=== PATIENT | male | born 1975 | race Hispanic/Latino ===

== ENCOUNTER 2018-07-30 00:42 | Observation (INO) | payer OTHER ==
[~2018-07-30] VITALS: Ht 185.4 cm; Wt 108.9 kg
[2018-07-30] VITALS (8 sets, daily range): BP systolic 131–166; BP diastolic 85–106
[~2018-07-30 00:42] MED LIST: Z.0.CELEBREX100 MG PO; [UNRECOGNIZED DRUG - OTHER] PO
[2018-07-30 01:25] LABS: BASOPHILS % 0.3 % (0.0-1.0); EOSINOPHILS # (AUTO) 0.2 (0.0-0.4); EOSINOPHILS % 2.3 % (0.0-6.0); HEMATOCRIT 44.9 % (38.2-49.6); HEMOGLOBIN 15.7 g/dL (14.0-18.0); LYMPHOCYTES # (AUTO) 3.5 (1.0-3.2); MEAN CORPUSCULAR HEMOGLOBIN 31.7 pg (28-32); MEAN CORPUSCULAR VOLUME 90.7 fL (81-99); MONOCYTES # (AUTO) 0.5 (0.2-0.8); MONOCYTES % 5.5 % (4.4-11.3); NEUTROPHILS # (AUTO) 4.5 (2.1-6.9); NEUTROPHILS % 51.4 % (38.7-80.0); PLATELET COUNT 319 x10e3/uL (140-360); RED BLOOD COUNT 4.95 x10e6/uL (4.3-5.7); RED CELL DISTRIBUTION WIDTH 12.5 % (11.7-14.4)
--- NOTE | 2018-07-30 01:45 | Diagnostic Imaging Report ---
EXAM: CHEST 2 VIEWS, PA and lateral INDICATION: Rapid heartbeat COMPARISON: None FINDINGS: LINES/TUBES: None LUNGS: No consolidations or edema. PLEURA: No effusions or pneumothorax. HEART AND MEDIASTINUM: Normal size and contour. BONES AND SOFT TISSUES: No acute findings. IMPRESSION: No acute thoracic abnormality. Signed by: Dr. Maite Bynum M.D. on 07/30/2018 1:41 AM
[2018-07-30 01:46] LABS: ALANINE AMINOTRANSFERASE 23 IU/L (0-55); ALBUMIN 4.4 g/dL (3.5-5.0); ALBUMIN/GLOBULIN RATIO 1.3 (0.8-2.0); ALKALINE PHOSPHATASE 60 IU/L (40-150); ANION GAP 15.7 mmol/L (8-16); BLOOD UREA NITROGEN 15 mg/dL (7-26); BUN/CREATININE RATIO 19 (6-25); CALCIUM 9.5 mg/dL (8.4-10.2); CARBON DIOXIDE 23 mmol/L (22-29); CHLORIDE 106 mmol/L (98-107); CREATINE KINASE 171 IU/L (30-200); CREATININE, SERUM 0.79 mg/dL (0.72-1.25); EST GLOMERULAR FILTRATION RATE > 60 ML/MIN (60-); GLUCOSE 144 mg/dL (74-118); POTASSIUM 3.7 mmol/L (3.5-5.1); SODIUM 141 mmol/L (136-145)
[2018-07-30 01:55] LABS: CLARITY,URINE CLEAR (CLEAR); COLOR,URINE YELLOW (YELLOW); KETONES,URINE NEGATIVE (NEGATIVE); LEUKOCYTE ESTERASE ,URINE NEGATIVE (NEGATIVE); NITRITE,URINE NEGATIVE (NEGATIVE); PROTEIN,URINE DIPSTICK TRACE (NEGATIVE)
[2018-07-30 01:56] LABS: AMPHETAMINES SCREEN,URINE NEGATIVE (NEGATIVE); BENZODIAZEPINES SCREEN,URINE NEGATIVE (NEGATIVE); BILIRUBIN,URINE NEGATIVE (NEGATIVE); PHENCYCLIDINE SCREEN,URINE NEGATIVE (NEGATIVE); URINE UROBILINOGEN 0.2 mg/dL (0.2 - 1)
[2018-07-30 02:05] LABS: BACTERIA,URINE RARE /HPF; EPITHELIAL CELLS,URINE RARE /LPF; WBC,URINE (MAN) 0-5 /HPF (0-5)
[2018-07-30] MEDS ORDERED: AMLODIPINE BESYLATE 5 MG TAB ONE (02:26)
[2018-07-30] MEDS ORDERED: AMLODIPINE BESYLATE 5 MG TAB PO ONE (02:30)
[2018-07-30] MEDS ORDERED: NITROGLYCERIN 0.4 MG SUBL SL PRN (03:00)
[2018-07-30] MEDS ORDERED: SODIUM CHLORIDE FLUSH 10 ML SYR INJ PRN (03:00)
[2018-07-30] MEDS ORDERED: ONDANSETRON HCL INJ 2 MG/ML VIAL IV PRN (03:00)
[2018-07-30] MEDS ORDERED: NORVASC5 MG PO (03:04)
[2018-07-30] MEDS ORDERED: MULTI-VITAMIN1 EACH PO (03:05)
--- OUTSIDE RECORDS SUMMARY | 2018-07-30 03:10 | XMS REPORT ---
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 Allergies, Adverse Reactions, Alerts This patient has no known allergies or adverse reactions. Medications This patient has no known medications. Results Test Description Test Time Test Comments Text Results Atomic Results Result Comments CHEST 2 VIEWS 2018-07-30 01:34:00 [facility] [address] [place] [address] Patient Name: SAIMA ARCOS MR #: [id number] : 1975 Age/Sex: 42/M Req #: [id number] Adm Physician: Ordered by: DK GLORIA MD Report #: [id number] Location: ER Room/Bed: Procedure: [id number] DX/CHEST 2 VIEWS Exam Date: 07/30/18 Exam Time: 0120 REPORT STATUS: Signed EXAM: CHEST 2 VIEWS, PA and lateral INDICATION: Rapid heartbeat COMPARISON: None FINDINGS: LINES/TUBES: None LUNGS: No consolidations or edema. PLEURA: No effusions or pneumothorax. HEART AND MEDIASTINUM: Normal size and contour. BONES AND SOFT TISSUES: No acute findings. IMPRESSION: No acute thoracic abnormality. Signed by: Dr. Nick Ritchie M.D. on 07/30/2018 1:41 AM Dictated By: NICK RITCHIE MD 0 Transcribed By: QUINTEN on 07/30/18140 COPY TO: DK GLORIA MD
[2018-07-30] MEDS: ACETAMINOPHEN 325 MG TAB PO PRN ×2 (07:21→19:36)
--- NOTE | 2018-07-30 07:51 | History and Physical ---
The patient comes in with chest pain and palpitations. HISTORY OF PRESENT ILLNESS: This is Mr. Olvera with a history of hypertension was in his usual state of health until yesterday morning. The patient was found with palpitations, racing heart. The patient got nervous and started with a headache. Headache described as 9/10 in intensity and also on the right side. The patient had slight chest pain present, non-pressure, but with more palpitations. The patient almost had a near syncopal episode. The patient came into the emergency room and was admitted for palpitations and also for headache. PAST MEDICAL HISTORY: History of hypertension. The patient takes amlodipine 5 mg and also multivitamins every day. SURGICAL HISTORY: History of torn meniscus in the left knee and also history of gallbladder removal. FAMILY HISTORY: Positive for hypertension in father. Otherwise negative. SOCIAL HISTORY: No ETOH. No IV drug abuse. No history of smoking either. REVIEW OF SYSTEMS: Positive for chest pain. Positive for palpitations. No nausea, vomiting or diarrhea. No constipation. No rectal bleeding, hematochezia. Positive for headache. No diplopia. No focal deficit also noted. PHYSICAL EXAMINATION VITAL SIGNS: Temperature is normal, 97.7, blood pressure is 166/106, pulse is 71, and he is on room air, respirations of 19. HEENT: Normocephalic and atraumatic. Pupils reactive to light and accommodation. CV: S1 and S2 normal. Regular rate and rhythm. ABDOMEN: Nontender and nondistended. EXTREMITIES: No clubbing. No cyanosis. No edema. LABORATORY VALUES: Initial white count is 8.7 with lymphocyte predominance of 40. Chemistry: Sodium is 141, potassium 3.7, glucose is 144, total bilirubin of 1.5. Toxicology was negative. Urine showed 6-10 rbcs. IMAGING STUDIES: Chest x-ray was done which showed no acute thoracic abnormalities. ASSESSMENT 1. Palpitations. 2. Headaches. 3. Hypertension. 4. Chest pain. PLAN: Continue with his home medications at this time. Pulse rate has been normal. Echocardiogram will be ordered. A thyroid panel will be ordered. MRI of the brain will be ordered for the headaches too. Further recommendations per clinical course. The patient will be monitored here in the tele monitoring. The patient is in sinus rhythm at this time. Further recommendations per clinical course, and also depending on the lab and depending on cardiology consult. Job#: [id number] RI
[2018-07-30] MEDS: ASPIRIN 81 MG ENTERIC COATED PO SCH (09:06)
[2018-07-30] MEDS: AMLODIPINE BESYLATE 5 MG TAB PO SCH (09:06)
[2018-07-30 09:25] LABS: CREATINE KINASE MB 2.1 ng/mL (0-5.0)
[2018-07-30 10:33] LABS: FREE THYROXINE INDEX 2.1849 (1.4-3.8); THYROID STIMULATING HORMONE 2.178 uIU/mL (0.350-4.940)
--- NOTE | 2018-07-30 14:30 | Consultation ---
DATE OF CONSULTATION: July 30, 2018 CARDIOLOGY CONSULTATION REASON FOR CONSULTATION: Palpitations. HISTORY OF PRESENT ILLNESS: Mr. Olvera is a 42-year-old gentleman with a past medical history of hypertension, obesity, who presents to this institution with malaise, right retroorbital headache and subjective palpitations. Patient reports that about 3 days ago he came down with upper respiratory tract infection-type symptoms which he got from his . He reports currently having complete nasal stuffiness associated with some sore throat and some slight headache. He has been taking p.r.n. ibuprofen for it. Patient reports that last night he lay down in bed and was suddenly awoken from his sleep with a warmth sensation and subjective palpitations and got anxious. He reports that he was frightened and woke up his and told her to bring him to the emergency room. His reports that at baseline he is not very much a complainer and decided to bring him in. He has reported in the last day or 2 having episodes of when he goes to sleep he is suddenly woken up with fits of shortness of breath with heart racing lasting for a couple of seconds and then largely resolves. He also is endorsing some headache predominantly behind his right eye area with a little bit of eye tearing. In the hospital he says that he has had more of these palpitation spells. Again they are all associated just when he is either going to sleep or is sleeping and is suddenly awoken with shortness of breath and heavy beats lasting seconds. He denies any syncope or near syncope. In terms of his childhood, he has been always very healthy and active. He denies any family history of sudden cardiac or rhythm disorders. He otherwise states that he is in relatively good health. PAST MEDICAL HISTORY 1. Hypertension, essential. 2. History of left knee torn meniscus. PAST SURGICAL HISTORY: History of cholecystectomy. FAMILY HISTORY: Father alive, has hypertension. Mother alive and well. Has a grandfather who in his 50s with heart problems. SOCIAL HISTORY: He reports occasional alcohol on the weekends with last use on Saturday night for Saturday Night Football, which was 2 days ago. Denies any illicit drug use. ALLERGIES: NO KNOWN DRUG ALLERGIES. HOME MEDICATIONS: Include Norvasc 5 mg daily, losartan unknown dose, and multivitamin tablet. REVIEW OF SYSTEMS GENERAL: Positive for low-grade fevers, chills, malaise. Denies any weight loss or weight gain. HEENT: Has nasal stuffiness. Has difficulty breathing through his nose. Has occasional headache as noted above. Has a little bit of sore throat. RESPIRATORY: Denies any pleuritic chest pain. Has a nonproductive cough. No wheezing. CARDIOVASCULAR: Denies any angina or overt chest pain. Positive for palpitations as noted above. Denies any syncope. GI: Denies any abdominal pain, bright red blood per rectum, melena, hematemesis. : Denies any dysuria, pyuria or any change in urinary frequency. MUSCULOSKELETAL: Has occasional left knee pain but no leg swelling. ENDOCRINE: Denies any heat or cold intolerance. NEUROLOGIC: Denies any focal weakness, numbness, tingling, seizures. Does report right-sided temporal headache. Denies any history of TIA or stroke. REMAINDER: Negative otherwise mentioned. PHYSICAL EXAMINATION VITAL SIGNS: Height of 73 inches, weight of 240 pounds. BMI is 31.7. Temperature 97.0, pulse of 74, respiratory rate of 18, blood pressure 141/95, O2 sat 98% on room air. IN GENERAL: This is a well-nourished, well-developed gentleman who appears a little bit ill due to his upper respiratory tract infection. HEENT: Pupils are equally round and reactive to light. Extraocular movements are intact. Oropharynx is clear. He is definitely nasally and congested-sounding. NECK: No elevation of jugular venous pulsation. No carotid bruits. CARDIOVASCULAR: Regular in rate and rhythm. Normal S1 and S2. No gallops, murmurs, rubs. LUNGS: Largely clear to auscultation bilaterally with good air entry. ABDOMEN: Soft, nontender and nondistended. Has normoactive bowel sounds. BACK: No costovertebral angle tenderness. EXTREMITIES: Warm with 2+ bilateral radial pulses, 2+ bilateral femoral pulses and 2+ pedal pulses. NEUROLOGIC: Cranial nerves 2-12 are intact, strength is 5/5, and is grossly nonfocal. PSYCH: Normal fluent speech, appropriate affect. A little bit of anxiety but no depression. LABS: White count 8.7, hemoglobin 15.7, hematocrit 44.9, platelets of 319. Sodium 141, potassium 3.7, chloride 106, bicarb 23, BUN 15, creatinine 0.79, glucose of 144. Hemoglobin A1c is 5.0%. Calcium of 9.5. AST 17, ALT 23, alk phos 60, total bilirubin 1.5. Total protein 7.7, albumin of 4.4. TSH is 2.178. Troponin went from 0.014 to 0.013. UDS is negative. UA shows 0-5 white cells. DIAGNOSTICS: EKG reveals sinus rhythm, incomplete right bundle branch block and no ST-T wave changes. Chest x-ray reveals no acute thoracic abnormalities. DIAGNOSES 1. Definite upper respiratory tract infection. 2. Subjective palpitations, luckily without any alarm symptoms. 3. Obesity. 4. Suspected sleep apnea. 5. Headache. 6. Hypertension. PLAN/RECOMMENDATIONS 1. From a cardiovascular standpoint, I have reviewed his telemetry extensively and we see no signs of any arrhythmias noted to corroborate his subjective complaints and historical complaints. 2. His echocardiogram was reviewed, showing structurally normal heart with EF preserved at 60% to 65% with normal diastolic function and no valvular abnormality. 3. Suspect patient may have underlying sleep apnea, does snore pretty loud per , and in light of his complete nasal blockage from his upper respiratory tract infection patient may be having episodes where he is gasping for air and in that setting is noted to be slightly with subjective palpitations and maybe tachycardia. 4. Do not necessarily advocate for any changes in pharmacotherapy. 5. I had a long discussion with the patient in terms of differential diagnosis. 6. Will follow up on imaging study of the head per primary team. 7. I had a long discussion with the patient including findings. 8. I offered stress test. He says he wants to perhaps pursue this as an outpatient, which is not unreasonable. Job#: [id number] EV
--- NOTE | 2018-07-30 17:05 | Diagnostic Imaging Report ---
MRI BRAIN WO HISTORY: Left arm tingling COMPARISON: None. TECHNIQUE: Sagittal T2, axial T2, axial T1, axial T2/FLAIR, axial gradient echo (or susceptibility weighted), coronal T2/FLAIR, and axial diffusion weighted MR images of the brain were obtained without contrast. Motion artifacts obscure some details. DISCUSSION: Scalp/bone marrow: Unremarkable. Brain sulci: Appropriate for patient's age. Ventricles: Normal in size and configuration. No hydrocephalus. Extra-axial spaces: No masses or fluid collections. Parenchyma: A few small T2/FLAIR hyperintense foci are seen in the bifrontal deep white matter. Otherwise, no mass, hemorrhage, or acute vascular insults. Vessels: Normal flow voids in major arteries and veins. Sellar/Suprasellar region: No abnormalities. Craniocervical junction: No abnormalities. Incidental findings: There is minimal T2 hyperintense mucosal thickening in the left maxillary sinus. IMPRESSION: 1. No acute intracranial abnormalities. 2. Few nonspecific small T2/FLAIR hyperintense foci in the bifrontal deep white matter. Signed by: Dr. Deuce Arauz M.D. on 07/30/2018 5:02 PM
[2018-07-30 19:33] LABS: CREATINE KINASE MB 1.4 ng/mL (0-5.0)
[2018-07-31] VITALS: BP 160/94
[2018-07-31] MEDS: ACETAMINOPHEN 325 MG TAB PO PRN (01:35)
[2018-07-31 04:00] VITALS: BP 141/89
[2018-07-31 05:03] LABS: BASOPHILS % 0.5 % (0.0-1.0); EOSINOPHILS # (AUTO) 0.2 (0.0-0.4); EOSINOPHILS % 2.7 % (0.0-6.0); HEMATOCRIT 44.7 % (38.2-49.6); HEMOGLOBIN 15.6 g/dL (14.0-18.0); LYMPHOCYTES # (AUTO) 3.6 (1.0-3.2); MEAN CORPUSCULAR HEMOGLOBIN 31.6 pg (28-32); MEAN CORPUSCULAR HGB CONC 34.9 g/dL (31-35); MEAN CORPUSCULAR VOLUME 90.7 fL (81-99); MONOCYTES # (AUTO) 0.4 (0.2-0.8); MONOCYTES % 4.8 % (4.4-11.3); NEUTROPHILS # (AUTO) 4.5 (2.1-6.9); NEUTROPHILS % 50.7 % (38.7-80.0); PLATELET COUNT 301 x10e3/uL (140-360); RED BLOOD COUNT 4.93 x10e6/uL (4.3-5.7); RED CELL DISTRIBUTION WIDTH 12.3 % (11.7-14.4)
[2018-07-31 05:23] LABS: ANION GAP 12.6 mmol/L (8-16); BLOOD UREA NITROGEN 13 mg/dL (7-26); BUN/CREATININE RATIO 16 (6-25); CALCIUM 9.6 mg/dL (8.4-10.2); CARBON DIOXIDE 26 mmol/L (22-29); CHLORIDE 104 mmol/L (98-107); EST GLOMERULAR FILTRATION RATE > 60 ML/MIN (60-); GLUCOSE 110 mg/dL (74-118); POTASSIUM 3.6 mmol/L (3.5-5.1); SODIUM 139 mmol/L (136-145)
[2018-07-31 06:03] LABS: CHOL/HDL RATIO 3.4 (3.9-4.7)
[2018-07-31 07:27] VITALS: BP 137/93
--- NOTE | 2018-07-31 07:30 | Progress Note ---
DATE: July 31, 2018 Patient had a quiet night, but did complain of some palpitations at nighttime, which woke him up. Corresponding tele strips do not show anything. The patient is alert and oriented times 3 at this time. No complaints. The patient had an MRI done and echocardiogram done yesterday. MRI was negative. No acute findings seen. The echocardiogram shows concentric LVH with trace TR and MR. EF is 55% to 60%. The patient's TSH was normal at 2.178. T3, T4 and T3 uptake was normal. OBJECTIVE VITALS: 96.9, pulse of 74, blood pressure is 141/89, SpO2 of 98%. The patient is currently on amlodipine and acetaminophen for headache. GENERAL: Alert and oriented times 3. LUNGS: Clear to auscultation bilaterally. HEENT: Normocephalic and atraumatic. Pupils reactive to light and accommodation. NECK: No JVD present. CARDIOVASCULAR: S1 and S2 normal. ABDOMEN: Nontender and nondistended. EXTREMITIES: No clubbing. No cyanosis. No edema. NEUROLOGIC: Nonfocal. LABS: Today's labs, white count was normal at 8.7, hemoglobin is 15.7, hematocrit of 44.7. No left shift present. Sodium is 139, potassium 3.6, GFR was about 60. TSH as mentioned above. ASSESSMENT 1. Palpitations. 2. Chest pain. 3. Hypertension. 4. Headache. The patient has been ruled out for acute coronary syndrome. His palpitations probably is related to sleep apnea, which we discussed with Dr. Moore yesterday. The patient has go into an outpatient sleep study. Will send him back to his primary care physician, Dr. David Hicks. Continue on his home medications at this time. The patient was asked to lose weight for sleep apnea, and also to sleep on his side. Further recommendations as an outpatient. Medicines on discharge will be as per medical reconciliation sheet. Will fax over reports to Dr. Hicks. Job#: [id number] JODIE
[2018-07-31] MEDS: AMLODIPINE BESYLATE 5 MG TAB PO SCH (08:10)
[2018-07-31] MEDS: ASPIRIN 81 MG ENTERIC COATED PO SCH (08:10)
== END 2018-07-31 09:28 | disposition home or self-care (01) ==
LOC: ER 00:42 → ERHOLD 03:07 → MED/SURG2 03:38
PROVIDERS: ADMIT Family Medicine; ATTEND Family Medicine
DX: R00.2 Palpitations (principal); R51 Headache; I10 Essential (primary) hypertension; Z82.49 Family history of ischemic heart disease and other diseases of the circulatory system; R07.9 Chest pain, unspecified; J06.9 Acute upper respiratory infection, unspecified; E66.9 Obesity, unspecified; E78.5 Hyperlipidemia, unspecified; Z68.37 Body mass index [BMI] 37.0-37.9, adult
CPT/HCPCS: 36415 ×2; 70551; 71046; 80048; 80053; 80061; 80307; 81001; 82550; 82553; 83036; 84436; 84443; 84479; 84484; 85025 ×2; 93005; 93306; 99284; G0378 ×2